=== PATIENT | female | born 1980 | race Caucasian/White ===

== ENCOUNTER 2025-05-20 15:49 | Emergency (ER) | payer BC ==
[~2025-05-20] VITALS: Ht 154.9 cm; Wt 90.6 kg
--- NOTE | 2025-05-20 16:44 | RADIOLOGY REPORT ---
CHEST RADIOGRAPH Indication: COUGH GREATER THAN A WEEK Technique: Single frontal view of the chest was obtained Comparison: None FINDINGS: Lines and Tubes: None Lungs: No focal consolidation. Pleura: No effusion. No pneumothorax. Cardiomediastinal contours: Unremarkable Bones: No acute osseous abnormality. IMPRESSION: No acute cardiopulmonary disease.
[2025-05-20 17:21] LABS: INFLUENZA TYPE A ANTIGEN RAPID NEGATIVE (Negative); INFLUENZA TYPE B ANTIGEN RAPID NEGATIVE (Negative)
--- NOTE | 2025-05-20 18:17 | Physician Documentation ---
History of Present Illness ~ Chief Complaint: Cold, cough & congestion Stated Complaint: CHEST CONGESTION Time Seen by MD: 16:29 Primary Medical Doctor: [facility] Patient is a pleasant 45-year-old female that presents to the emergency department for complaints of head congestion chest congestion with a productive cough x1 week. Patient reports possible fevers no chills nausea vomiting diarrhea at this time. Patient denies any known sick contacts at this time. Patient reports just generally feeling unwell over the last week. No chest pain chest pressure or shortness of breath noted at this time. Patient does report feeling like she was wheezing. Lungs are clear today on auscultation and exam. Vital signs are stable and appropriate here in the emergency department. No other symptoms reported at this time. Medication Reconciliation Allergies: Coded Allergies: amoxicillin (Verified Allergy, Unknown, DOESNT REMEMBER, 05/20/25) azithromycin (Verified Allergy, Unknown, DOESNT REMEMBER REACTION, 05/20/25) Past Medical History Past Medical History: Anemia, Chronic Back Pain Past Surgical History: no surgical history Alcohol Use: Occasionally Drug Use: none Lives with: Spouse Lives In: Home Occupation: employed Review of Systems ROS As stated above in the HPI, otherwise all systems are reviewed and negative. Physical Exam Vital Signs: Temperature: 98.6, Source: Temporal, Heart Rate: 76, Respiratory Rate: 19, BP: 144/85, Pulse Oximetry: 99, Weight: 90.600 Oxygen Flow Rate: 0 Physical Exam VITALS: Reviewed and as above. GENERAL: Alert, no apparent distress. HEENT: Normocephalic, atraumatic, PERRL, EOMI, dry mucosa, no erythema, nasal congestion intermittent rhinorrhea observed during examination. RESPIRATORY: Lungs clear, normal breath sounds, no respiratory distress, no inspiratory expiratory wheezes rales rhonchi or crackles noted on auscultation during examination. CHEST: No accessory muscle use, no retractions CV: Regular rate, rhythm, no edema, no murmur, No: JVD GI: Soft, non-tender, bowels sounds present, no rebound, guarding, or rigidity BACK: No CVA tenderness, or swelling MUSCULOSKELETAL No deformities, no edema SKIN: Warm and dry, no rash NEURO: Oriented x4, No motor or sensory deficit PSYCH: Normal mood and affect, no agitation Progress Results/Orders Results/Orders Orders - WALESKA,CELY A TWISTHAND Covid19 Binax Poc Result Entry (05/20/25 16:27) Chest,Single View (05/20/25 16:27) Completed Orders - CELY GALEANO TWISTHAND Influenza Type A&B Rapid Test (05/20/25 16:27) Chest,Single View (05/20/25 16:27) Vital Signs 05/20/25 05/20/25 16:07 16:34 Temp 98.6 Pulse 76 Resp 16 19 B/P (MAP) 144/85 Pulse Ox 99 O2 Flow Rate 0 Laboratory Tests Test 05/20/25 16:20 Influenza Type A Antigen Negative Influenza Type B Antigen Negative SARS-CoV-2 Antigen (Rapid) Negative Medical Decision Making Additional information obtaine: other Findings MEDICAL DECISION-MAKING Chief Complaint: Head congestion, chest congestion, and productive cough for one week Differential Diagnosis Considered: Acute bronchitis Community-acquired pneumonia Influenza COVID-19 Upper respiratory tract infection Diagnostic Workup and Clinical Reasoning: The patient presented with one week of upper and lower respiratory symptoms including head congestion, chest congestion, productive cough, subjective fevers, and wheezing sensation. Physical examination revealed clear lung frey on auscultation with stable vital signs, making pneumonia unlikely. In immunocompetent adults younger than 70 years with normal vital signs and absence of abnormal chest examination findings (rales, egophony, or tactile fremitus), pneumonia is clinically unlikely. Diagnostic testing performed: COVID-19 test: Negative Influenza A and B: Negative Streptococcal test: Negative Chest X-ray: Negative for acute cardiopulmonary processes, consolidation, or pneumonia The negative chest radiograph in conjunction with normal vital signs and clear lung examination effectively excludes pneumonia. The [employer] recommends[3] no routine investigation with chest X-ray, spirometry, or microbiological testing for immunocompetent adult outpatients with suspected acute bronchitis. However, given the patient's one-week symptom duration and concern for possible pneumonia, chest radiography was appropriately obtained and ruled out this diagnosis. Final Diagnosis: Acute bronchitis This diagnosis is supported by the clinical presentation of acute cough with upper and lower respiratory symptoms, absence of pneumonia on imaging, negative viral testing, and normal physical examination findings. Acute bronchitis is a viral illness manifesting as acute cough with inflammation of the trachea and lower airways, and is considered a self-limiting condition. Treatment Plan and Rationale: Per [employer] guidelines, no routine prescription of antibiotic therapy, antiviral therapy, antitussives, inhaled beta agonists, inhaled anticholinergics, inhaled corticosteroids, oral corticosteroids, or oral NSAIDs is recommended for immunocompetent adults with acute bronchitis until such treatments have been shown to be safe and effective. The patient does not meet criteria for antibiotic therapy, as there is no clinical or radiographic evidence of pneumonia and no evidence of complicating bacterial infection. The [employer] and Centers for Disease Control and Prevention recommend against routine antibiotic use for acute uncomplicated bronchitis, as more than 90% of cases are viral in etiology. Disposition: Discharge home with supportive care measures Return Precautions: The patient was advised to seek reassessment if symptoms persist beyond expected duration (typically 2-3 weeks for cough associated with acute bronchitis) or if symptoms worsen. If acute bronchitis worsens, targeted investigations and consideration for antibiotic therapy may be warranted if a complicating bacterial infection becomes likely. Patient Education: The patient was counseled that cough may persist for 10-21 days or occasionally longer, and that this is a self-limiting viral illness. Supportive care measures including rest, hydration, and [id number] symptomatic relief as needed were discussed. Differential Dx:Considerations: Include: Allergic rhinitis, Influenza, Otitis media, Peritonsillar abscess, Pharyngitis-Diphtheria, Pharyngitis-Streptoccal, Pharyngitis-Viral, Pneumonia, Pnuemonitis, Sinusitis, URI, Other Departure Disposition: 01 HOME / SELF CARE / HOMELESS Impression: Primary Impression: Acute respiratory infection Condition: Stable Discharge Instructions: Upper Respiratory Infection, Adult, Cough, Adult Additional Instructions: Your Diagnosis You have been diagnosed with acute bronchitis, which is a viral infection of the airways in your lungs. This is sometimes called a "chest cold." Your chest X- ray showed no signs of pneumonia, and your tests for COVID-19, influenza, and strep throat were all negative. What to Expect Acute bronchitis is a self-limiting illness, which means it will get better on its own without antibiotics. Your cough may last 2 to 3 weeks or occasionally longer. Other symptoms like congestion and feeling unwell typically improve within 10 to 14 days. Colored mucus (yellow or green) is normal with viral infections and does not mean you need antibiotics. Treatment at Home Antibiotics are not recommended for acute bronchitis because it is caused by a virus, not bacteria. Antibiotics do not help viral infections and can cause side effects. To help manage your symptoms: For Pain and Fever: Take acetaminophen (Tylenol) or ibuprofen (Advil, Motrin) as needed for discomfort or fever. Acetaminophen may help with nasal congestion and runny nose. Ibuprofen may help with body aches, headache, and general discomfort. For Nasal Congestion: Use saline nasal spray or rinses to help clear nasal passages. You may use [id number] nasal decongestant spray (like Afrin/oxymetazoline) for no more than 3 days to avoid rebound congestion. Avoid oral phenylephrine products, as they are not effective for nasal congestion. General Care: Get plenty of rest Drink fluids to stay hydrated Use a humidifier if it helps you feel more comfortable When to Seek Medical Care Return to the emergency department or contact your doctor if you develop: Worsening symptoms after initially improving High fever (temperature greater than 102.2F or 39C) lasting more than 3 days Difficulty breathing or shortness of breath Chest pain Cough lasting longer than 3 weeks without improvement Coughing up blood Symptoms that significantly worsen instead of gradually improving Important Reminders This is a viral illness that will improve with time and rest Most people feel significantly better within 2 weeks Antibiotics will not help you get better faster and may cause unnecessary side effects Continue to practice good hand hygiene to prevent spreading the infection to others Referrals: NO PRIMARY CARE PROVIDER (PCP) Education Educated: Patient Educated regarding: diagnosis, treatment, need for follow up Signature Scribe Signature: A Attestation: Scribed for Cely Galeano by HELENA Cooley . 05/20/25 18:20 CELY GALEANO May 20, 2025 18:17
[2025-05-20 18:32] VITALS: BP 124/70; PULSE 70; RESP 16; TEMP 98.1; O2SAT 99
== END 2025-05-20 18:36 | disposition home or self-care (01) ==
LOC: ER 15:49
DX: J22 Unspecified acute lower respiratory infection (principal); G89.29 Other chronic pain; D64.9 Anemia, unspecified; Z88.1 Allergy status to other antibiotic agents; Z72.89 Other problems related to lifestyle; Z20.822 Contact with and (suspected) exposure to COVID-19
CPT/HCPCS: 36415; 71045; 87804; 87811; 99284